=== PATIENT | male | born 1980 | race African-American/Black ===

== ENCOUNTER 2018-04-10 20:04 | Emergency (ER) | payer SELFPAY ==
[2018-04-10 20:09] VITALS: BP 154/106; PULSE 80; RESP 18; TEMP 36.7; O2SAT 100; BMI 29.5
--- NOTE | 2018-04-10 23:29 | ED.SKABFB ---
HPI - Skin/Abscess/Foreign Bdy General Chief complaint: Skin/Abscess/Foreign Body Stated complaint: LEFT LOWER LEG INJURY Time Seen by Provider: 04/10/18 23:14 Source: patient Mode of arrival: ambulatory Limitations: no limitations History of Present Illness HPI narrative: Patient is a 37-year-old male who presents with a left leg laceration. He was is getting crab pots today when he unfortunately sliced his left leg. The bleeding controlled. Concerned more for infection. He did use that knife on raw chicken and crabs. No fever redness or pus. Denies any numbness or tingling. Bleeding controlled. complaint: laceration Related Data Previous Rx's Medication Instructions Recorded cephalexin [Keflex] 500 mg PO TID #21 cap 04/10/18 Allergies Allergy/AdvReac Type Severity Reaction Status Date / Time No Known Drug Allergies Allergy Verified 04/10/18 20:13 Review of Systems Review of Systems GENERAL: Denies chills,fever HEENT: Denies throat pain RESPIRATORY: Denies dyspnea, cough, wheezing CARDIOVASCULAR: Denies chest pain, palpitations GASTROINTESTINAL: Denies nausea, vomiting MUSCULOSKELETAL: Denies extremity pain, injury SKIN: See HPI NEUROLOGIC: Denies weakness, dizziness, headache, numbness 8 point review of systems is negative except for those stated above and HPI PFSH Medical History Healthy adult (Acute) Social History Smoking Status: Current every day smoker Exam Initial Vital Signs Initial Vital Signs: Vital Signs Temperature 98.1 F 04/10/18 20:09 Pulse Rate 80 04/10/18 20:09 Respiratory Rate 18 04/10/18 20:09 Blood Pressure 154/106 H 04/10/18 20:09 Pulse Oximetry 100 04/10/18 20:09 GENERAL: Well-appearing, well-nourished and in no acute distress. CARDIOVASCULAR: peripheral pulses in tact, cap refill <2 sec RESPIRATORY: No respiratory distress, speaks in full sentences without difficulty EXTREMITIES: Normal range of motion, no clubbing or edema. Neurovascularly intact NEUROLOGICAL: Cranial nerves II through XII grossly intact. Normal gait and speech. SKIN: 2.5 cm laceration left medial calf. Adipose tissue exposed deep tendon structures intact. Neurovascularly intact. No significant debris. Procedures Laceration Repair Laceration 1: Site: lower extremity Side (If applicable): left Size (cm): 2.5 Description: linear Depth: simple, single layer Local Anesthetic: lidocaine 1% Amount of anesthesia used (mL): 2 Pre-repair: wound explored, irrigated extensively and deep structures intact Skin layer closed with: nylon Size (cm): 4-0 Number of sutures: 2 Course Orders Ordered: Discontinued Medications Diphtheria/Tetanus/Acell Pertussis (Adacel) 0.5 ml IM .ONCE ONE Stop: 04/10/18 23:32 Last Admin: 04/10/18 23:52 Dose: 0.5 ml Vital Signs - 8 hr 04/11/18 00:16 Pulse Rate 87 Respiratory Rate 14 Blood Pressure 147/97 H Pulse Oximetry 97 Discharge Plan Departure Patient Disposition: Home, Self-Care Clinical Impression: Laceration of left lower leg Discharge Date/Time: 04/11/18 00:19 Interventions: ED Discharge Assessment Last Done: 04/11/18 00:16 Instructions: DI for Laceration Repair -- Simple Activity Restrictions/Additional Instructions: 1. Have your suture removed in 5-7 days, you may go to walk-in clinic, return to the ER or call your primary care physician. 2. No soaking in water including dishes, bathtubs, Lakes, swimming pools etc 3. Signs of infection include, but not limited to, increased redness, increased swelling, increased pain, fever and purulent drainage, if the symptoms should arise, you may need an antibiotic and you should have a reevaluation either by your primary care provider or by the emergency department. Antibiotics have been faxed to [facility] in [place] you may start this tomorrow. Keflex 500 mg 3 times a day for 7 days Prescriptions: New cephalexin [Keflex] 500 mg capsule 500 mg PO TID Qty: 21 RF: 0
[2018-04-10] MEDS: TET,DIPH,PERTUSS(ACELL),VAC/PF 0.5 ML SYRINGE IM (23:52)
[2018-04-11 00:16] VITALS: BP 147/97; PULSE 87; RESP 14; O2SAT 97
== END 2018-04-11 00:19 | disposition home or self-care (01) ==
PROVIDERS: Emergency Provider Emergency Medicine
DX: S81.812A Laceration without foreign body, left lower leg, initial encounter (principal); W26.0XXA Contact with knife, initial encounter
CPT/HCPCS: 12001; 90471; 99282; 99283; 90715

== ENCOUNTER → 2020-08-18 16:09 | Outpatient (CLI) | payer OTHER, MEDICAID, SELFPAY ==
[2020-08-18 17:17] LABS: COVID19 -Nasal RAPID Negative (Negative)
== END ==
PROVIDERS: Visit Provider Physician Assistant
DX: Z11.59 Encounter for screening for other viral diseases (principal)
CPT/HCPCS: 87635

== ENCOUNTER → 2021-01-19 08:57 | Outpatient (CLI) | payer OTHER, MEDICAID, SELFPAY ==
[2021-01-19] MEDS: COVID-19 VACC #1, MRNA(MOD) 100 MCG/0.5 ML VIAL IM (09:07)
== END ==
PROVIDERS: Visit Provider Internal Medicine
DX: Z23 Encounter for immunization (principal)
CPT/HCPCS: 0011A; 91301

== ENCOUNTER 2021-01-22 12:17 | Emergency (ER) | payer OTHER, MEDICAID, SELFPAY ==
[2021-01-22 12:39] VITALS: BP 139/84; PULSE 84; RESP 18; TEMP 37.3; O2SAT 97; BMI 28.8
--- NOTE | 2021-01-22 14:25 | DI.RAD.S_ITS ---
PROCEDURE: XR HAND LT 2V INDICATIONS: CT bite TECHNIQUE: 3 views of the hand(s) acquired. COMPARISON: None. FINDINGS: Bones: No fractures or dislocations. Carpal bones are normally aligned. No suspicious bony lesions. Soft tissues: No suspicious soft tissue calcifications. IMPRESSION: Normal hand radiographs. Dictated by: Simon Collins M.D. on 01/22/2021 at 14:47 Approved by: Simon Collins M.D. on 01/22/2021 at 14:47
--- NOTE | 2021-01-22 14:35 | ED_ITS ---
HPI - Wound/Laceration General Chief Complaint: Wound/Laceration Stated Complaint: Cat bite on LT hand Time Seen by Provider: 01/22/21 14:23 Source: patient Mode of arrival: Family Vehicle Limitations: no limitations History of Present Illness HPI narrative: Patient is a 40-year-old male who presents with a cat bite to his left hand 5 days ago. He has noted some redness and mild swelling no decreased range of motion he does not have streaking up his hand or arm no fever or chills. His sister came over fluids of that tech in told him he needs to have it checked out. Related Data Previous Rx's Medication Instructions Recorded amoxicillin-pot clavulanate 1 tab PO Q12H #14 tab 01/22/21 [Augmentin] Allergies Allergy/AdvReac Type Severity Reaction Status Date / Time No Known Drug Allergies Allergy Verified 08/18/20 16:05 Review of Systems Review of Systems Narrative: GENERAL: Denies chills,fever HEENT: Denies throat pain RESPIRATORY: Denies dyspnea, cough, wheezing CARDIOVASCULAR: Denies chest pain, palpitations GASTROINTESTINAL: Denies nausea, vomiting MUSCULOSKELETAL: Denies extremity pain, injury SKIN: See HPI NEUROLOGIC: Denies weakness, dizziness, headache, numbness 8 point review of systems is negative except for those stated above and HPI Patient History Medical History Asthma Healthy adult Social History Smoking Status: Current every day smoker Smoking Status: Current every day smoker alcohol intake frequency: 0-2 drinks per day Substance Use Type: does not use Exam Initial Vital Signs Initial Vital Signs: Vital Signs Temperature 99.2 F 01/22/21 12:39 Pulse Rate 84 01/22/21 12:39 Respiratory Rate 18 01/22/21 12:39 Blood Pressure 139/84 01/22/21 12:39 Pulse Oximetry 97 01/22/21 12:39 GENERAL: Alert well-appearing 41-year-old male CARDIOVASCULAR: peripheral pulses in tact, cap refill <2 sec RESPIRATORY: No respiratory distress, speaks in full sentences without difficulty EXTREMITIES: Normal range of motion, no clubbing or edema. Neurovascularly intact NEUROLOGICAL: Cranial nerves II through XII grossly intact. Normal gait and speech. Full range of motion of left hand mild swelling noted on the dorsal side neurovascularly intact SKIN: Left hand puncture wounds noted between thumb and index finger mild erythema surprisingly no streaking Course Orders Ordered: ED Orders 01/22/21 14:25 XR hand LT 2V Stat Vital Signs Vital signs: Vital Signs - 8 hr 01/22/21 12:39 Temperature 99.2 F Pulse Rate 84 Respiratory Rate 18 Blood Pressure 139/84 Pulse Oximetry 97 MDM - Wound/Laceration Imaging Data Extremity x-ray #1: Radiologist's Impression: PROCEDURE: XR HAND LT 2V INDICATIONS: CT bite TECHNIQUE: 3 views of the hand(s) acquired. COMPARISON: None. FINDINGS: Bones: No fractures or dislocations. Carpal bones are normally aligned. No suspicious bony lesions. Soft tissues: No suspicious soft tissue calcifications. IMPRESSION: Normal hand radiographs. Dictated by: Simon Collins M.D. on 01/22/2021 at 14:47 MDM Narrative Medical decision making narrative: Patient's hand surprisingly looks good after 5 days of a cat bite. X-ray is negative will start him on Augmentin. Discharge Plan Departure Patient Disposition: Home Clinical Impression: Cat bite Qualifiers: Encounter type: initial encounter Qualified Code(s): W55.01XA - Bitten by cat, initial encounter Instructions: DI for Cat Bite Activity Restrictions/Additional Instructions: *You have been diagnosed with cat bite *What to do: Elevate, monitor for worsening infection *Continue to take medications as directed Augmentin 875 mg twice a day for 7 days--> SENT TO [facility] Motrin 800 mg every 8 hours if needed for [id number] pain *Follow up with your primary care provider in 2-3 days *Return to ER if you should have increasing redness, streaking of arm, increasing finger swelling or inability to move finger or any new, worsening or concerning symptoms Prescriptions: New amoxicillin-pot clavulanate [Augmentin] 875-125 mg tablet 1 tab PO Q12H Qty: 14 RF: 0 Referrals: Miscellaneous,Doctor, [Primary Care Provider] -
== END 2021-01-22 15:11 | disposition home or self-care (01) ==
PROVIDERS: Emergency Provider Emergency Medicine
DX: S61.452A Open bite of left hand, initial encounter (principal); W55.01XA Bitten by cat, initial encounter
CPT/HCPCS: 73120; 99281; 99283

== ENCOUNTER → 2021-02-16 18:20 | Outpatient (CLI) | payer OTHER, MEDICAID, SELFPAY ==
[2021-02-16 19:25] LABS: COVID19 -Nasal RAPID Negative (Negative)
== END ==
PROVIDERS: Visit Provider Physician Assistant
DX: R53.1 Weakness (principal); Z20.822 Contact with and (suspected) exposure to COVID-19; R05 Cough
CPT/HCPCS: 87635

== ENCOUNTER → 2021-02-24 09:16 | Outpatient (CLI) | payer OTHER, MEDICAID, SELFPAY ==
[2021-02-24] MEDS: COVID-19 VACC #2, MRNA(MOD) 100 MCG/0.5 ML VIAL IM (09:25)
== END ==
PROVIDERS: Visit Provider Internal Medicine
DX: Z23 Encounter for immunization (principal)
CPT/HCPCS: 0012A; 91301

== ENCOUNTER → 2021-05-16 11:04 | Outpatient (CLI) | payer OTHER, MEDICAID, SELFPAY ==
--- NOTE | 2021-05-16 11:05 | DI.RAD.S_ITS ---
PROCEDURE: XR CHEST 2V INDICATIONS: fall, R posterior rib pain TECHNIQUE: 2 views of the chest were acquired. COMPARISON: None. FINDINGS: Surgical changes and devices: None. Lungs and pleura: Lungs are clear. No pleural effusions or pneumothorax. Mediastinum: Mediastinal contours are normal. Heart size is normal. Bones and chest wall: No suspicious bony abnormalities. Soft tissues appear unremarkable. IMPRESSION: No acute cardiopulmonary abnormality. Dictated by: Gigi Nice M.D. on 05/16/2021 at 11:32 Approved by: Gigi Nice M.D. on 05/16/2021 at 11:33
--- NOTE | 2021-05-16 11:05 | DI.RAD.S_ITS ---
PROCEDURE: XR SHOULDER RT MIN 2V INDICATIONS: fall, R posterior rib/shoulder pain TECHNIQUE: 4 views of the shoulder were acquired. COMPARISON: [facility], CR, XR SHOULDER MIN 2VW RT, 11/10/2015, 9:34. FINDINGS: Bones: The right 4th rib is fractured with minimal displacement. No other fractures or dislocations. No suspicious bony lesions. Visualized ribs appear intact. Soft tissues: No suspicious soft tissue calcifications. IMPRESSION: Minimally displaced right 4th rib fracture. Dictated by: Gigi iNce M.D. on 05/16/2021 at 11:33 Approved by: Gigi Nice M.D. on 05/16/2021 at 11:34
== END ==
PROVIDERS: Referring Provider Physician Assistant; Visit Provider Physician Assistant
DX: S22.31XA Fracture of one rib, right side, initial encounter for closed fracture (principal); M25.511 Pain in right shoulder; R07.81 Pleurodynia; W19.XXXA Unspecified fall, initial encounter
CPT/HCPCS: 71046; 73030

== ENCOUNTER 2022-03-08 15:18 | Emergency (ER) | payer OTHER, MEDICAID, SELFPAY ==
[2022-03-08] VITALS (18 sets, daily range): BP systolic 111–144; BP diastolic 57–93; PULSE 32–127; RESP 18–24; TEMP 36.6; O2SAT 95–99; BMI 30.1
--- NOTE | 2022-03-08 15:37 | ED_ITS ---
HPI - General Adult <Arun Car DO - Last Filed: 03/09/22 06:47> General Chief complaint: Toxicology Problem Stated complaint: ETOH Time Seen by Provider: 03/08/22 15:35 Source: EMS Mode of arrival: EMS Limitations: altered mental status History of Present Illness HPI narrative: Patient is a 41-year-old male who was found outside in the community with reported alcohol intoxication. There is no signs of any trauma. EMS found the patient minimally responsive however maintaining his airway. He did follow commands however this was very limited. Upon arrival patient was unable to provide any HPI other than acknowledging that he did drink alcohol. Related Data Allergies Allergy/AdvReac Type Severity Reaction Status Date / Time No Known Drug Allergies Allergy Verified 05/16/21 10:40 Review of Systems <Arun Car DO - Last Filed: 03/09/22 06:47> Review of Systems ROS Unobtainable: Unobtainable due to medical condition Patient History <Arun Car DO - Last Filed: 03/09/22 06:47> Medical History Asthma Healthy adult Social History Smoking Status: Current every day smoker Smoking Status: Current every day smoker alcohol intake frequency: 0-2 drinks per day Substance Use Type: does not use Exam <Arun Car DO - Last Filed: 03/09/22 06:47> Initial Vital Signs Initial Vital Signs: Vital Signs Pulse Rate 111 H 03/08/22 15:22 Pulse Oximetry 96 03/08/22 15:22 Const General: No ill appearing HENMT Head: normal to inspection and normocephalic Mouth: moist mucous membranes Resp Effort & Inspection: normal respiratory effort Auscultation: clear to auscultation bilaterally Cardio Rate: regular rate Rhythm: regular rhythm GI Inspection: normal to inspection Palpation: soft Skin General: no rashes or lesions noted Neuro Other: Patient nonverbal. Does move all 4 extremities spontaneously and does follow commands. Extrem Other: No deformities noted <Micha Garcia MD - Last Filed: 03/15/22 05:09> Initial Vital Signs Initial Vital Signs: Vital Signs Pulse Rate 111 H 03/08/22 15:22 Pulse Oximetry 96 03/08/22 15:22 Course <Arun Car - Last Filed: 03/09/22 06:47> Orders Ordered: Discontinued Medications Ondansetron HCl (Ondansetron 4 Mg/2 Ml Inj) 4 mg IV NOW ONE Stop: 03/08/22 18:59 Last Admin: 03/08/22 19:09 Dose: 4 mg Documented By: AT Vital Signs Vital signs: Vital Signs - 8 hr 03/08/22 15:26 03/08/22 15:22 03/08/22 15:24 Temperature 97.8 F Pulse Rate 116 H 111 H Respiratory Rate 24 Blood Pressure 143/85 H 137/76 Pulse Oximetry 97 96 Oxygen Delivery Method Room Air 03/08/22 15:24 03/08/22 15:30 03/08/22 15:30 Temperature Pulse Rate 115 H 111 H Respiratory Rate Blood Pressure 133/73 Pulse Oximetry 97 97 Oxygen Delivery Method Room Air 03/08/22 16:00 03/08/22 16:00 03/08/22 16:30 Temperature Pulse Rate 115 H Respiratory Rate Blood Pressure 144/93 H 132/82 Pulse Oximetry 97 Oxygen Delivery Method Room Air 03/08/22 16:30 03/08/22 17:00 03/08/22 17:01 Temperature Pulse Rate 111 H 32 L Respiratory Rate Blood Pressure 136/88 Pulse Oximetry 96 Oxygen Delivery Method 03/08/22 17:01 03/08/22 17:30 03/08/22 17:30 Temperature Pulse Rate 124 H 109 H Respiratory Rate Blood Pressure 117/65 Pulse Oximetry 98 97 Oxygen Delivery Method Room Air 03/08/22 18:00 03/08/22 18:00 03/08/22 18:30 Temperature Pulse Rate 111 H Respiratory Rate Blood Pressure 114/57 L 111/67 Pulse Oximetry 98 Oxygen Delivery Method 03/08/22 18:30 03/08/22 19:00 03/08/22 19:00 Temperature Pulse Rate 123 H 127 H Respiratory Rate Blood Pressure 131/85 Pulse Oximetry 98 98 Oxygen Delivery Method 03/08/22 19:30 03/08/22 19:30 03/08/22 20:00 Temperature Pulse Rate 119 H Respiratory Rate Blood Pressure 132/84 121/74 Pulse Oximetry 95 Oxygen Delivery Method Room Air 03/08/22 20:00 03/08/22 20:30 03/08/22 20:30 Temperature Pulse Rate 114 H 113 H Respiratory Rate Blood Pressure 117/71 Pulse Oximetry 97 98 Oxygen Delivery Method Room Air 03/08/22 21:00 03/08/22 21:00 Temperature Pulse Rate 112 H Respiratory Rate Blood Pressure 119/66 Pulse Oximetry 99 Oxygen Delivery Method Room Air <Micha Garcia MD - Last Filed: 03/15/22 05:09> Course Course Narrative: 6:30 p.m.. Sign-out from Dr. Car patient brought in by ambulance, neighbor had called found patient on the ground. Patient is awake and answers questions but he does not remember what happened. Denies any pain or injury. I introduced myself to patient. He is awake alert oriented self and date of . He does admit he drinks a lot of alcohol every day. He states he was with his brother. He does not remember being outside. Denies any pain from head to toe. He does complain of nausea. Denies any headache or neck pain or a rm pain or back pain or chest pain or abdominal pain. Patient is cooperative. Orders Ordered: Discontinued Medications Ondansetron HCl (Ondansetron 4 Mg/2 Ml Inj) 4 mg IV NOW ONE Stop: 03/08/22 18:59 Last Admin: 03/08/22 19:09 Dose: 4 mg Documented By: AT Reevaluation(s) Reevaluation #1: Patient awake alert oriented x3. He has steady self gait in the hallway. No slurred speech. No altered mental status. He is able is say his name clearly and date of and here. He states he lives with his brother by name. Also states his father by name. He desires discharge home. He denies any pain anywhere on his body. No headache. Nausea better. He denies remembering how he was found on the ground by the neighbor. But denies any trauma. No tremors. No hallucinations. No seizures here. Patient has been very cooperative. Not combative. He is smiling and interacting very well with staff. 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 Vital Signs Vital signs: Vital Signs - 8 hr 03/08/22 15:26 03/08/22 15:22 03/08/22 15:24 Temperature 97.8 F Pulse Rate 116 H 111 H Respiratory Rate 24 Blood Pressure 143/85 H 137/76 Pulse Oximetry 97 96 Oxygen Delivery Method Room Air 03/08/22 15:24 03/08/22 15:30 03/08/22 15:30 Temperature Pulse Rate 115 H 111 H Respiratory Rate Blood Pressure 133/73 Pulse Oximetry 97 97 Oxygen Delivery Method Room Air 03/08/22 16:00 03/08/22 16:00 03/08/22 16:30 Temperature Pulse Rate 115 H Respiratory Rate Blood Pressure 144/93 H 132/82 Pulse Oximetry 97 Oxygen Delivery Method Room Air 03/08/22 16:30 03/08/22 17:00 03/08/22 17:01 Temperature Pulse Rate 111 H 32 L Respiratory Rate Blood Pressure 136/88 Pulse Oximetry 96 Oxygen Delivery Method 03/08/22 17:01 03/08/22 17:30 03/08/22 17:30 Temperature Pulse Rate 124 H 109 H Respiratory Rate Blood Pressure 117/65 Pulse Oximetry 98 97 Oxygen Delivery Method Room Air 03/08/22 18:00 03/08/22 18:00 03/08/22 18:30 Temperature Pulse Rate 111 H Respiratory Rate Blood Pressure 114/57 L 111/67 Pulse Oximetry 98 Oxygen Delivery Method 03/08/22 18:30 03/08/22 19:00 03/08/22 19:00 Temperature Pulse Rate 123 H 127 H Respiratory Rate Blood Pressure 131/85 Pulse Oximetry 98 98 Oxygen Delivery Method 03/08/22 19:30 03/08/22 19:30 03/08/22 20:00 Temperature Pulse Rate 119 H Respiratory Rate Blood Pressure 132/84 121/74 Pulse Oximetry 95 Oxygen Delivery Method Room Air 03/08/22 20:00 03/08/22 20:30 03/08/22 20:30 Temperature Pulse Rate 114 H 113 H Respiratory Rate Blood Pressure 117/71 Pulse Oximetry 97 98 Oxygen Delivery Method Room Air 03/08/22 21:00 03/08/22 21:00 Temperature Pulse Rate 112 H Respiratory Rate Blood Pressure 119/66 Pulse Oximetry 99 Oxygen Delivery Method Room Air Medical Decision Making <Arun Car, - Last Filed: 03/09/22 06:47> Lab Data Lab results reviewed: Yes I reviewed the patient's lab results. Result diagrams: 03/08/22 15:52 03/08/22 16:20 Labs: Lab Results 03/08/22 03/08/22 03/08/22 Range/Units 15:52 16:20 19:00 WBC 14.9 H (4.5-11.0) X10^3/uL RBC 5.65 (4.5-5.9) X10^6/uL Hgb 17.2 (13.5-17.5) g/dL Hct 50.5 (41-53) % MCV 89.3 (80-100) fL MCH 30.4 (26-34) PG MCHC 34.0 (30-36) % RDW 14.0 (11.6-14.8) % Plt Count 411 H (150-400) X10^3/uL Neut % (Auto) 50.1 (50-75) % Lymph % (Auto) 42.5 H (25-40) % [place] % (Auto) 5.8 (3-14) % Eos % (Auto) 0.8 L (2-4) % Baso % (Auto) 0.8 (0-2) % Neut # (Auto) 7500 H (0803-1528) /uL Lymph # (Auto) 6300 H (2000-1726) /uL [place] # (Auto) 900 (0-900) /uL Eos # (Auto) 100 (0-450) /uL Baso # (Auto) 100 (0-100) /uL Sodium 144 (137-145) mmol/L Potassium 3.9 (3.4-5.1) mmol/L Chloride 107 (98-107) mmol/L Carbon Dioxide 17 L (22-32) mmol/L BUN 15 (9-20) mg/dL Creatinine 0.97 (0.66-1.25) mg/dL Estimated GFR > 60 (>60) mL/min BUN/Creatinine Ratio 15.5 (6-22) Glucose 89 (70-100) mg/dL Calcium 8.6 (8.4-10.2) mg/dL U Opiates 300ng/mL cut Negative (Negative) Ur Oxycodone Screen Negative (Negative) Urine Methadone Screen Negative (Negative) Ur Barbiturates Screen Negative (Negative) U Tricyclic Antidepress Negative (Negative) Ur Phencyclidine Scrn Negative (Negative) Ur Amphetamines Screen Negative (Negative) U Methamphetamines Scrn Negative (Negative) Ur MDMA Scrn (Ecstasy) Negative (Negative) U Benzodiazepines Scrn Negative (Negative) Urine Cocaine Screen Negative (Negative) U Marijuana (THC) Screen Positive H (Negative) Ethyl Alcohol 434 H* ( - 10) mg/dL Point of Care Testing Glucose POC 75 Point of care testing: Point of Care Testing Glucose POC 75 MDM Narrative Medical decision making narrative: No signs of trauma. Does move all 4 extremities equally. Patient maintaining his airway. Alcohol level was elevated. Care turned over to Dr. Garcia to continue to observe until sober. <Micha Garcia MD - Last Filed: 03/15/22 05:09> Differential Diagnosis Differential Diagnosis: Alcohol abuse/intoxication Lab Data Labs: Lab Results 03/08/22 03/08/22 03/08/22 Range/Units 15:52 16:20 19:00 WBC 14.9 H (4.5-11.0) X10^3/uL RBC 5.65 (4.5-5.9) X10^6/uL Hgb 17.2 (13.5-17.5) g/dL Hct 50.5 (41-53) % MCV 89.3 (80-100) fL MCH 30.4 (26-34) PG MCHC 34.0 (30-36) % RDW 14.0 (11.6-14.8) % Plt Count 411 H (150-400) X10^3/uL Neut % (Auto) 50.1 (50-75) % Lymph % (Auto) 42.5 H (25-40) % [place] % (Auto) 5.8 (3-14) % Eos % (Auto) 0.8 L (2-4) % Baso % (Auto) 0.8 (0-2) % Neut # (Auto) 7500 H (1287-9817) /uL Lymph # (Auto) 6300 H (4316-9937) /uL [place] # (Auto) 900 (0-900) /uL Eos # (Auto) 100 (0-450) /uL Baso # (Auto) 100 (0-100) /uL Sodium 144 (137-145) mmol/L Potassium 3.9 (3.4-5.1) mmol/L Chloride 107 (98-107) mmol/L Carbon Dioxide 17 L (22-32) mmol/L BUN 15 (9-20) mg/dL Creatinine 0.97 (0.66-1.25) mg/dL Estimated GFR > 60 (>60) mL/min BUN/Creatinine Ratio 15.5 (6-22) Glucose 89 (70-100) mg/dL Calcium 8.6 (8.4-10.2) mg/dL U Opiates 300ng/mL cut Negative (Negative) Ur Oxycodone Screen Negative (Negative) Urine Methadone Screen Negative (Negative) Ur Barbiturates Screen Negative (Negative) U Tricyclic Antidepress Negative (Negative) Ur Phencyclidine Scrn Negative (Negative) Ur Amphetamines Screen Negative (Negative) U Methamphetamines Scrn Negative (Negative) Ur MDMA Scrn (Ecstasy) Negative (Negative) U Benzodiazepines Scrn Negative (Negative) Urine Cocaine Screen Negative (Negative) U Marijuana (THC) Screen Positive H (Negative) Ethyl Alcohol 434 H* ( - 10) mg/dL Point of Care Testing Glucose POC 75 Point of care testing: Point of Care Testing Glucose POC 75 MDM Narrative Medical decision making narrative: No signs of trauma. Does move all 4 extremities equally. Patient maintaining his airway. Alcohol level was elevated. Care turned over to Dr. Garcia to continue to observe until sober. 10:15 p.m.. Appropriate for discharge home. No withdrawal symptoms here. No seizures tremors or altered mental status. Blood alcohol noted however patient admits drinks heavy alcohol daily. Is very functional and high alcohol levels. No indication for repeat alcohol level at time of discharge as patient is clear speech steady gait awake alert oriented x3. No imaging indicated. No signs of trauma and patient denies any pain anywhere. No altered mental status Discharge Plan Departure Patient Disposition: Home Clinical Impression: Alcohol intoxication Instructions: DI for Alcohol Use Disorder Activity Restrictions/Additional Instructions: No driving or operating machinery tonight. Encourage you to decrease your alcohol consumption carefully. See family doctor for counseling centers. Call provided primary care referral phone number to establish family doctor. Call [phone]. Return if worsening questions or concerns. Referrals: Miscellaneous,DoctorMD [Primary Care Provider] - Visit Report Forms: Patient Portal/API
[2022-03-08 16:00] LABS: Add Manual Diff / Slide Review NO; Basophils Absolute Auto 100 /uL (0-100); Basophils Percent Auto 0.8 % (0-2); Eosinophils Absolute Auto 100 /uL (0-450); Eosinophils Percent Auto 0.8 % (2-4); Hematocrit 50.5 % (41-53); Hemoglobin 17.2 g/dL (13.5-17.5); Lymphocytes Absolute Auto 6300 /uL (1100-4500); Lymphocytes Percent Auto 42.5 % (25-40); Mean Corpuscular Hemoglobin 30.4 PG (26-34); Mean Corpuscular Volume 89.3 fL (80-100); Monocytes Absolute Auto 900 /uL (0-900); Monocytes Percent Auto 5.8 % (3-14); Neutrophils Absolute Auto 7500 /uL (1500-7000); Neutrophils Percent Auto 50.1 % (50-75); Platelet Count 411 X10^3/uL (150-400); Red Blood Cell Count 5.65 X10^6/uL (4.5-5.9); White Blood Cell Count 14.9 X10^3/uL (4.5-11.0)
[2022-03-08 17:49] LABS: BUN Creatinine Ratio 15.5 (6-22); Blood Urea Nitrogen 15 mg/dL (9-20); Calcium 8.6 mg/dL (8.4-10.2); Carbon Dioxide 17 mmol/L (22-32); Chloride 107 mmol/L (98-107); Estimated Glomerular Filt Rate > 60 mL/min (>60); Glucose 89 mg/dL (70-100); HEMOLYSIS 31 (0-50); Potassium 3.9 mmol/L (3.4-5.1); Sodium 144 mmol/L (137-145)
[2022-03-08 17:59] LABS: Ethanol (ETOH) 434 mg/dL
--- NOTE | 2022-03-08 19:00 | PC.NURSE ---
Pt stood independently to use urinal, steady on feet. Pt waking more, answering questions, clear and coherent.
[2022-03-08] MEDS: ONDANSETRON 4 MG/2 ML INJ IV (19:09)
[2022-03-08 20:05] LABS: UR Morphine/Opiate cutoff 300 Negative (Negative); Ur Creatinine Normal (Normal); Ur Specific Gravity Normal (Normal); Urine Amphetamines Negative (Negative); Urine Barbiturates Negative (Negative); Urine Benzodiazepines Negative (Negative); Urine Cocaine Negative (Negative); Urine MDMA Negative (Negative); Urine Methadone Negative (Negative); Urine Methamphetamines Negative (Negative); Urine Oxycodone Negative (Negative); Urine Phencyclidine Negative (Negative); Urine Tetrahydrocannabinol Positive (Negative); Urine Tricyclic Antidepressant Negative (Negative); Urine pH Normal (Normal)
--- NOTE | 2022-03-08 22:15 | PC.NURSE ---
Pt aaox3/x, ambulated in hallway with steady gait, speaking in full sentences, clear and coherent.
== END 2022-03-08 22:24 | disposition home or self-care (01) ==
PROVIDERS: Emergency Medicine; Emergency Provider Emergency Medicine
DX: F10.129 Alcohol abuse with intoxication, unspecified (principal); Y90.8 Blood alcohol level of 240 mg/100 ml or more
CPT/HCPCS: 80048; 80305; 80320; 82962; 85025; 96374; 99283; 99284; J2405

== ENCOUNTER 2022-04-01 14:00 | Emergency (ER) | payer OTHER, MEDICAID, SELFPAY ==
[2022-04-01 14:00] VITALS: BP 102/57; PULSE 103; RESP 16; TEMP 36.8; O2SAT 100
[2022-04-01 14:51] LABS: Add Manual Diff / Slide Review NO; Basophils Absolute Auto 100 /uL (0-100); Basophils Percent Auto 1.3 % (0-2); Eosinophils Absolute Auto 100 /uL (0-450); Eosinophils Percent Auto 1.4 % (2-4); Lymphocytes Absolute Auto 3900 /uL (1100-4500); Mean Corpuscular HGB Conc 34.1 % (30-36); Mean Corpuscular Hemoglobin 30.5 PG (26-34); Mean Corpuscular Volume 89.5 fL (80-100); Monocytes Absolute Auto 600 /uL (0-900); Monocytes Percent Auto 5.7 % (3-14); Neutrophils Absolute Auto 5300 /uL (1500-7000); Neutrophils Percent Auto 52.6 % (50-75); Platelet Count 363 X10^3/uL (150-400); Red Blood Cell Count 4.92 X10^6/uL (4.5-5.9); Red Cell Distribution Width 14.1 % (11.6-14.8)
[2022-04-01 14:57] LABS: Acetaminophen < 10 ug/mL (10-30); Alanine Aminotransferase 40 IU/L (<50); Albumin 4.5 g/dL (3.5-5.0); Albumin Globulin Ratio 1.6 (1.0-2.8); Alkaline Phosphatase 50 U/L (38-126); Aspartate Aminotransferase 35 IU/L (17-59); BUN Creatinine Ratio 13.1 (6-22); Bilirubin Total 0.3 mg/dL (0.2-1.3); Blood Urea Nitrogen 11 mg/dL (9-20); Calcium 8.7 mg/dL (8.4-10.2); Carbon Dioxide 22 mmol/L (22-32); Chloride 110 mmol/L (98-107); Estimated Glomerular Filt Rate > 60 mL/min (>60); Globulin 2.9 g/dL (1.7-4.1); Glucose 87 mg/dL (70-100); HEMOLYSIS < 15 (0-50); Potassium 3.9 mmol/L (3.4-5.1); Salicylate < 1.0 mg/dL (<20); Sodium 146 mmol/L (137-145); Total Protein 7.4 g/dL (6.3-8.2)
[2022-04-01 15:04] LABS: Ethanol (ETOH) 384 mg/dL
[2022-04-01 15:28] LABS: Free T4, Direct Thyroxine 1.45 ng/dL (0.78-2.19)
[2022-04-01 15:42] LABS: Thyroid Stimulating Hormone 0.337 uIU/mL (0.47-4.68)
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
--- NOTE | 2022-04-01 15:44 | DI.CT.S_ITS ---
PROCEDURE: CT HEAD/BRAIN WO CON INDICATIONS: Altered mental status/trauma TECHNIQUE: Noncontrast 5 mm thick angled axial sections acquired from the foramen magnum to the vertex, with coronal and sagittal reformats. For radiation dose reduction, the following was used: automated exposure control, adjustment of mA and/or kV according to patient size. COMPARISON: None. FINDINGS: Image quality: Excellent. CSF spaces: Basal cisterns are patent. No extra-axial fluid collections. Ventricles are normal in size and shape. Brain: No midline shift. No intracranial masses or hemorrhage. Prieto-white matter interface is normal. Skull and face: Calvarium and visualized facial bones are intact, without suspicious lesions. Sinuses: Visualized sinuses and mastoids are clear. IMPRESSION: Unremarkable CT of the brain Approved by: Josemanuel Lancaster M.D. on 04/01/2022 at 15:38
[2022-04-01 15:54] VITALS: BP 123/60; PULSE 84; RESP 19; O2SAT 96
--- NOTE | 2022-04-01 15:54 | PC.NURSE ---
Notified provider that I spoke to brother of patient who requested the patient be committed with concerns for patient's safety and safety of family.
[2022-04-01 16:20] LABS: COVID19 -Nasal RAPID Negative (Negative)
[2022-04-01 17:33] VITALS: BP 143/81; PULSE 101; RESP 20; O2SAT 95
[2022-04-01] MEDS: diazePAM 5 MG TABLET 10 MG PO (18:02)
[2022-04-01 18:30] LABS: UR Morphine/Opiate cutoff 300 Negative (Negative); Ur Creatinine Normal (Normal); Ur Specific Gravity Normal (Normal); Urine Amphetamines Negative (Negative); Urine Barbiturates Negative (Negative); Urine Benzodiazepines Negative (Negative); Urine Cocaine Negative (Negative); Urine MDMA Negative (Negative); Urine Methadone Negative (Negative); Urine Methamphetamines Negative (Negative); Urine Oxycodone Negative (Negative); Urine Phencyclidine Negative (Negative); Urine Tetrahydrocannabinol Positive (Negative); Urine Tricyclic Antidepressant Negative (Negative); Urine pH Normal (Normal)
[2022-04-01 19:26] VITALS: BP 105/52; PULSE 101; RESP 18; O2SAT 97
[2022-04-01] MEDS: ONDANSETRON 4 MG ODT SL (19:37)
[2022-04-02] VITALS (7 sets, daily range): BP systolic 124–146; BP diastolic 73–102; PULSE 75–110; RESP 14; O2SAT 97–98
--- NOTE | 2022-04-02 07:49 | PC.NURSE ---
Pt sleeping. Resp even and unlabored.
--- NOTE | 2022-04-02 08:53 | PC.NURSE ---
Pt ate half his breakfast tray
--- NOTE | 2022-04-02 09:24 | PC.NURSE ---
Pt up to the bathroom. Ambulating unassisted with a steady gait.
--- NOTE | 2022-04-02 09:40 | PC.NURSE ---
Patient ambulated to the bathroom and I gave him some more snacks and water. I updated him that were just waiting for social work consult and patient mentioned that he was taking a medication until his insurance plan /stopped cover the cost. I told him social work would be able to help give him appropriate resources for Rx's.
[2022-04-02] MEDS: PHENobarbital 65 MG/ML VIAL 130 MG IV (12:55)
--- NOTE | 2022-04-02 14:38 | CM.SWNOTE ---
PHYTOPATHOLOGY TEACHER Assessment PHYTOPATHOLOGY TEACHER - Lab Animal Technologist Assessment PHYTOPATHOLOGY TEACHER/Lab Animal Technologist Assessment Time Spent with Patient Start date 04/02/22 Visit Start Time 12:10 End date 04/02/22 Visit End Time 12:50 Total time Care Management spent on 40 minutes patient visit-in minutes Substance Abuse Screening Include Onset, Duration, Intensity Presenting Problem Patient presents to ED via EMS after being found on the ground after ETOH intoxication. Patient was positive for ETOH with a BAL of 384 last evening. Precipitating Event(s) Patient has hx of ETOH binge drinking for a few days to a few weeks and then stops for a few days or weeks at a time. Patient endorses he lost his job a few weeks ago and was just informed that he cannot return to his family's home. Patient endorses stresses with a custody orozco as well. Patient presented to the ED on 03/08/22 with similar concerns. Patient Strengths Patient is seeking help and seeking detox Current Behavioral Health Provider(s) No provider reported Include Facility, Provider, Ph. # Family Hx of Behavioral Abuse None reported Rehab Facilities? ((Date(s), Location(s) Patient endorses hx of 28 day ) inpatient stay at [facility] in [place] last year. Patient endorses hx of AA and IOP with [facility] History of Withdrawal? Seizures? Sweats, anxiety, shakes, weakness. Patient denies hx of seizures Longest Period of Sobriety 1 year Psychosocial information & Support Patient is 41 y/o male who was Systems residing with brother and father in [place] but recently was kicked out due to recent ETOH use. Patient denies current supports other than family. School/Work unemployed Legal Concerns Legal Matters - Outstanding Issues None reported Mental Status Orientation (Person/Place/Time) A/Ox4 Stated Mood ok Affect (Congruent with Mood?) depressed, flat, congruent with mood, full range Thought Content - Specify/Describe None reported Obsessions, Delusions, Hallucinations Thought Processes (Khzyhkg-Whzydokm-Jbqq coherent Kmrvtkhu-Vtocpybj-Pvjhzjcuec- Ccsbligcynvnev-Psevnfb-Ghrkkkdxwtnv- Thought Blocking) Speech (Jljrew-Vjkf-Bycdqro-Rapid-Soft- slow/soft Loud-Pressured) Motor (Kjriye-Dglcxnwes-Pnyi-Other) slow/normal, not formally assessed Insight (Elod-Xwgv-Tgue/Limited) fair Judgement (Tlje-Lfjq-Ufbd/Limited) fair Impulse Control (Adequate-Impaired) adequate Memory (Gxyjtmwtd-Nmqlzp-Nehzbp, Patient denies memory of how Impaired-Intact) and when he got to the ED. Concentration (Intact-Impaired) intact Attention (Intact-Impaired) intact Behavior (Appropriate-Inappropriate) appropriate Additional Comment Patient presents as calm, coherent and communicative. Risk Assessment Suicidal Ideation (Plan) No Homicidal Ideation (Plan) No Comment Patient endorses concern for the harm he is doing to his body. Intervention Intervention PHYTOPATHOLOGY TEACHER enters room to meet with patient. Patient endorses he presents to the ED due to alcoholism. Patient endorses he woke up in the hospital and does not remember when he got here. Patient endorses high anxiety, nausea, and weak. Patient endorses drinking a lot of vodka last night and he does not recall how much. Patient endorses he recalls being on day three of a three day binges. Patient endorses hx of ETOH binges and states he will be sober for few days to a few weeks at time and typically drink for a few to several days in a row. Patient endorses he can drink about 5 pints of vodka in a three day span of time. Patient denies HI and SI, patient endorses hx of anxiety , depression and panic attacks. Patient presents as tearful when discussing his ETOH use and states that he lost his job and has been just now kicked out of his family home. Patient endorses that he is seeking detox. PHYTOPATHOLOGY TEACHER calls [facility] and [facility] detox centers and it is reported that they do not have beds unless someone does not show up this evening. PHYTOPATHOLOGY TEACHER calls [facility] detox and triage center and it is reported that they have beds and can review patient for this evening. PHYTOPATHOLOGY TEACHER faxes clinicals for review at [facility] triage. Plan RA Plan PHYTOPATHOLOGY TEACHER to seek detox bed for patient and f/u with other POC if patient is not accepted into detox. Cristiana Boateng, DRAWBENCH OPERATOR HELPER
--- NOTE | 2022-04-02 17:37 | CM.SWNOTE ---
SOLID TIRE FINISHER Note Patient was accepted at [facility] for this evening at 2300. SQUASH CENTRE MANAGER to set up BLS transportation for patient. Plan: Patient to transfer to [facility] via BLS this evening ANGELIKA Mccracken
--- NOTE | 2022-04-02 17:41 | PC.NURSE ---
Accepted at [facility] by SENA Viramontes. Arrival time at 2300, NWA eta here at [facility] at 2125.
== END 2022-04-02 19:45 | disposition home or self-care (01) ==
PROVIDERS: Emergency Medicine; Emergency Provider Emergency Medicine
DX: F10.139 Alcohol abuse with withdrawal, unspecified (principal); Y90.8 Blood alcohol level of 240 mg/100 ml or more; Z20.822 Contact with and (suspected) exposure to COVID-19
CPT/HCPCS: 70450; 80053; 80305; 80320; 80329; 81003; 84439; 84443; 85025; 87635; 96374; 99284; C9803; G0480; J2560